=== PATIENT | female | born 1995 | race African-American/Black ===

== ENCOUNTER 2022-08-03 23:26 | Observation (INO) | payer OTHER, MEDICAID, SELFPAY ==
--- NOTE | ~2022-08-03 | US_ITS ---
EXAMINATION: US OB limited DATE: 08/04/2022 07:47 INDICATION: well-being. TECHNIQUE: Real-time ultrasound of the pelvis was performed. COMPARISON: None. FINDINGS: There is a single fetus in transverse lie. The placenta is fundal and posterior, 6.9 cm from the cer vix. The cervical length is 4.2 cm on transabdominal images, which is normal. heart rate is 165 beats per minute (bpm). The amniotic fluid volume is subjectively normal. There is a 4.2 cm cystic m ass in left ovary with peripheral low level echoes. There is vascular flow to left ovary. IMPRESSION: 1. Single living fetus in transverse lie. 2. 4.2 cm cystic mass in left ovary with peripheral low level echoes, likely a hemorrhagic cyst. Reviewed, dictated and finalized at location A.
[2022-08-04] VITALS (132 sets, daily range): BP systolic 74–134; BP diastolic 53–97; PULSE 81–124; RESP 15–16; TEMP 37.1–37.3; O2SAT 92–100; BMI 27.3
--- NOTE | 2022-08-04 00:20 | PC.NURSE ---
Patient reported cramping while doing assessment, abdomen was palpated and patient states that it was tender when palpated. Abdomen was firm. TOCO applied to monitor uterus.
[2022-08-04 00:26] LABS: Hematocrit 22.8 % (37.0-47.0); Mean Corpuscular HGB Conc 28.5 g/dl (32-36); Mean Corpuscular Volume 66.7 fl (80-100); Mean Platelet Volume 8.7 fl (7.4-10.4); Platelet Count Result 216 k/mm3 (150-375); Red Blood Count 3.42 M/mm3 (4.2-5.4); Red Cell Distribution Width 18.1 % (11.5-14.5); White Blood Count 9.1 K/mm3 (4.5-10.0)
[2022-08-04 00:35] LABS: Hemoglobin 6.5 g/dL (12.0-15.0)
[2022-08-04 00:37] LABS: Alanine Aminotransferase 15 U/L (6-35); Albumin Level 3.4 g/dL (3.5-5.1); Alkaline Phosphatase 106 U/L (38-126); Anion Gap 5 mmol/L (8-16); Aspartate Amino Transferase 30 U/L (14-36); Bilirubin,Total 1.1 mg/dL (0.2-1.3); Blood Urea Nitrogen 5 mg/dL (7-17); Carbon Dioxide 20 mmol/L (22-30); Chloride 104 mmol/L (98-107); Estimated Glomerular Filt Rate > 60; Glucose 88 mg/dL (65-110); INR 1.2; Potassium 3.4 mmol/L (3.4-5.0); Prothrombin Time 14.7 Seconds (11.1-14.7); Sodium 129 mmol/L (137-145)
[2022-08-04 00:38] LABS: Partial Thromboplastin Time 25.7 SECONDS (22.3-36.8)
--- NOTE | 2022-08-04 00:38 | PC.NURSE ---
Notified Dr. Tinsley of lab results. Also notified of maternal assessment including abdominal pain with palpation, firm fundus palpated. Patient contractions q1-1.5minutes. Patient reports vaginal bleeding x6 hours. Patient denies clots. Trickle of blood coming from vagina noted upon assessment. FHT doppled 180-[id number] Tinsley coming in to evaluate.
[2022-08-04 00:39] LABS: Fibrinogen 284 mg/dl (215-510)
--- NOTE | 2022-08-04 01:08 | PC.NURSE ---
Dr. Tinsley at bedside. Plan of care discussed with patient, questions answered. Bedside ultrasound performed. Speculum exam performed by Dr. Tinsley and culture collected. T doppled by Dr. Tinsley.
[2022-08-04] MEDS: ONDANSETRON INJ 4 MG/2 ML VIAL IV PUSH (01:15)
[2022-08-04] MEDS: SODIUM CHLORIDE 0.9% IV 250 ML 30 ML IV CONT (01:26)
--- NOTE | 2022-08-04 01:41 | PM.IMHP ---
H&P: HPI History of Present Illness Date/Time: 08/04/22 01:41 Chief Complaint: Bleeding Narrative: She is a 27 y/o at 18 5/7 by EDC 01/04/23 which was established by an ultrasound that she had at an outside hospital approximately one month ago. She has not established any care. She presented to [facility] ED after she noticed what she states was a pop in her lower abdomen, she was sitting and then started having bleeding. She denies fluid leakage. In ED there was some blood in vagina, small amount per ED provider. Also she had a hemoglobin of 6.9. MCV in the 60s. Normal WBC on CBC. She denies any hypovolemic symptoms. She was accepted as a patient here for severe anemia and threatened miscarriage. She started having cramping when she arrived on L and D. Mild nausea. She was also aron. Temp 99. Bedside ultrasound showed fundal placental, normal fluid and lower uterine segment appeared ? thin. Her history is significant for 2 prior c/s 2012 and repeat 2018. She had a gastric sleeve in 2020. Regular periods. Denies any recent strenuous activity. Denies abnormal vaginal discharge. No history of tobacco, alcohol or drug use. FHT 170 a bedside. Bedside ultrasound showed fetus breech position, normal appearing fluid, the lower uterine segment appeared ? thin, intact. Review of Systems Review of Systems: All systems reviewed & are unremarkable except as noted in HPI and below Constitutional: Constitutional: Reports no additional constitutional complaints and Denies headache(s) Eyes: Eyes: Denies spots in vision ENT: Reports system reviewed and no additional complaints, except as documented and Denies headache(s) Cardiovascular: Cardiovascular: Denies chest pain and Denies dyspnea Respiratory: Respiratory: Denies dyspnea Gastrointestinal: Gastrointestinal: Reports no additional gastrointestinal complaints Genitourinary: Genitourinary: Reports amenorrhea Musculoskeletal: Musculoskeletal: Reports no additional musculoskeletal complaints Integumentary/Breasts: Skin/Breast: Denies breast mass and Denies rash Neurologic: Denies headache(s) Psychiatric: Psychiatric: Reports no additional psychiatric complaints [facility] Female Reproductive History Menstrual Total pregnancies: 3 Meds Home Medications and Allergies Home Medications Medication Instructions Recorded Confirmed Type No Home Medications 08/04/22 08/04/22 History Vital Signs Vital Signs - 24 hr 08/04/22 00:24 08/04/22 00:26 08/04/22 00:30 Pulse Rate 94 94 Blood Pressure 123/71 127/79 Pulse Oximetry 100 Oxygen Delivery 08/04/22 00:31 08/04/22 00:36 08/04/22 00:41 Pulse Rate Blood Pressure Pulse Oximetry 100 100 100 Oxygen Delivery 08/04/22 00:46 08/04/22 00:51 08/04/22 00:56 Pulse Rate Blood Pressure Pulse Oximetry 100 100 100 Oxygen Delivery 08/04/22 01:00 08/04/22 01:01 08/04/22 01:06 Pulse Rate 99 Blood Pressure 120/91 H Pulse Oximetry 100 100 Oxygen Delivery 08/04/22 01:11 08/04/22 01:16 08/04/22 01:22 Pulse Rate Blood Pressure Pulse Oximetry 100 100 100 Oxygen Delivery 08/04/22 01:24 08/04/22 01:29 08/04/22 01:30 Pulse Rate 91 Blood Pressure 129/72 Pulse Oximetry 92 100 Oxygen Delivery 08/04/22 00:20 Pulse Rate Blood Pressure Pulse Oximetry Oxygen Delivery Room Air Exam Const: General: uncomfortable Eyes: General: appearance normal, both eyes and all related structures Resp: Effort & Inspection: normal respiratory effort Cardio: Rate: regular rate GI: Inspection: normal to inspection Other: uterus -2umb tenderness at lower uterus, suprapubic, no abdominal guarding or rebound, no CVA tenderness : External Female Exam: normal external appearance Speculum Exam - Vagina: other Speculum Exam - Cervix: normal appearance of the cervix Other: small amount of dark blood in vagina, cervix closed and thick Sk
[2022-08-04] MEDS: ceFAZolin 1 GM/NS 50 ML 1 GM/50 ML BAG IVPB (02:03)
[2022-08-04] MEDS: NIFEdipine 10 MG CAPSULE PO ×2 (02:07→08:12)
[2022-08-04 02:10] LABS: Appearance Urine Cloudy (Clear); Bacteria Urine 1+ /hpf; Bilirubin Urine Negative (Negative); Blood Urine 3+ (Negative); Color Urine Yellow (Yellow); Glucose Urine UA Negative (Negative); Ketones Urine 2+ mg/dL (Negative); Leukocyte Esterase Ur 2+ LEU/UL (Negative); Need Manual Microscopic Reviewed; Nitrate Urine Negative (Negative); Protein Urine 1+ mg/dL (Negative); RBC Urine >100 /hpf (0-2); Specific Grav Ur 1.025 (1.001-1.035); Squamous Epithelial Cell Urine None seen /hpf (Few); WBC Urine 51-100 /hpf
[2022-08-04 02:13] LABS: Add Urine Microscopic? YES
[2022-08-04 02:43] LABS: Amphetamine Screen Urine Negative (Negative); Barbiturate Screen Urine Negative (Negative); Benzodiazepines Screen Urine Negative (Negative); Cannabinoid Screen Urine Negative (Negative); Cocaine Screen Urine Negative (Negative); Methadone Screen Urine Negative (Negative); Opiate Screen Urine Negative (Negative); Phencyclidine Screen Urine Negative (Negative)
[2022-08-04] MEDS: DEXTROSE 5%/0.9% SOD CHL 1,000 ML 125 ML IV CONT (05:47)
[2022-08-04 10:13] LABS: Hematocrit 29.9 % (37.0-47.0); Hemoglobin 8.8 g/dL (12.0-15.0); Mean Corpuscular HGB Conc 29.4 g/dl (32-36); Mean Corpuscular Hemoglobin 20.4 pg (26-34); Mean Corpuscular Volume 69.4 fl (80-100); Mean Platelet Volume 8.5 fl (7.4-10.4); Platelet Count Result 233 k/mm3 (150-375); Red Blood Count 4.31 M/mm3 (4.2-5.4); Red Cell Distribution Width 20.4 % (11.5-14.5); White Blood Count 8.8 K/mm3 (4.5-10.0)
[2022-08-04 10:21] LABS: Alanine Aminotransferase 33 U/L (6-35); Albumin Level 3.7 g/dL (3.5-5.1); Alkaline Phosphatase 109 U/L (38-126); Anion Gap 11 mmol/L (8-16); Aspartate Amino Transferase 33 U/L (14-36); Bilirubin,Total 2.2 mg/dL (0.2-1.3); Calcium 8.6 mg/dL (8.4-10.2); Carbon Dioxide 18 mmol/L (22-30); Chloride 101 mmol/L (98-107); Estimated CRCL calculation 159 ml/min; Estimated Glomerular Filt Rate > 60; Glucose 104 mg/dL (65-110); Potassium 3.1 mmol/L (3.4-5.0); Sodium 130 mmol/L (137-145)
[2022-08-04 10:22] LABS: Blood Urea Nitrogen < 2 mg/dL (7-17)
[2022-08-04 10:41] LABS: INR 1.2; Partial Thromboplastin Time 25.6 SECONDS (22.3-36.8); Prothrombin Time 14.3 Seconds (11.1-14.7)
[2022-08-04 10:42] LABS: Fibrinogen 388 mg/dl (215-510)
--- NOTE | 2022-08-04 11:53 | ECG_ITS ---
Measurements Intervals [place] Rate: 97 P: 70 VT: 151 QRS: 23 QRSD: 93 T: 37 QT: 358 QTc: 456 Interpretive Statements SINUS RHYTHM INCOMPLETE RIGHT BUNDLE BRANCH BLOCK LOW QRS VOLTAGE IN PRECORDIAL LEADS [QRS DEFLECTION < 1.0 mV IN CHEST LEADS] NO PREVIOUS ECG AVAILABLE FOR COMPARISON Electronically Signed On 08-05-2022 13:49:17 CDT by Yi Dickens M.D.
--- NOTE | 2022-08-04 14:50 | PM.OBPNVD ---
OB - PN: Subj Subjective Date/time seen: 08/04/22 0820 Interval history: She states she feels better, minimal spotting and cramping. Decreased tenderness at suprapubic area. OB - PN: Obj Data Labs 08/04/22 09:55 08/04/22 09:55 Labs: Laboratory Results - last 24 hr 08/03/22 08/03/22 08/03/22 23:57 23:57 23:57 WBC 9.1 RBC 3.42 L Hgb 6.5 L* Hct 22.8 L MCV 66.7 L MCH 19.0 L MCHC 28.5 L RDW 18.1 H Plt Count 216 MPV 8.7 PT 14.7 INR 1.2 APTT 25.7 Fibrinogen 284 Sodium 129 L Potassium 3.4 Chloride 104 Carbon Dioxide 20 L Anion Gap 5 L BUN 5 L Creatinine 0.40 L Estim Creat Clear Calc Not Reportable Estimated GFR > 60 Glucose 88 Calcium 8.0 L Total Bilirubin 1.1 AST 30 ALT 15 Alkaline Phosphatase 106 Total Protein 7.0 Albumin 3.4 L Urine Color Urine Appearance Urine pH Ur Specific [place] Urine Protein Urine Glucose (UA) Urine Ketones Ur Blood (Man) Urine Nitrate Urine Bilirubin Urine Urobilinogen Add Ur Microanalysis Leukocyte Esterase Rfl Urine RBC Urine WBC Ur Squamous Epith Cells Urine Bacteria Urine Casts Urine Opiates Screen Urine Methadone Screen Ur Barbiturates Screen Ur Phencyclidine Scrn Ur Amphetamine Screen U Benzodiazepines Scrn Urine Cocaine Screen U Cannabinoids Screen Blood Type Antibody Screen Crossmatch 08/03/22 08/04/22 08/04/22 23:57 01:45 01:45 WBC RBC Hgb Hct MCV MCH MCHC RDW Plt Count MPV PT INR APTT Fibrinogen Sodium Potassium Chloride Carbon Dioxide Anion Gap BUN Creatinine Estim Creat Clear Calc Estimated GFR Glucose Calcium Total Bilirubin AST ALT Alkaline Phosphatase Total Protein Albumin Urine Color Yellow Urine Appearance Cloudy H Urine pH 6.0 Ur Specific [place] 1.025 Urine Protein 1+ H Urine Glucose (UA) Negative Urine Ketones 2+ H Ur Blood (Man) 3+ H Urine Nitrate Negative Urine Bilirubin Negative Urine Urobilinogen 1.0 Add Ur Microanalysis Reviewed Leukocyte Esterase Rfl 2+ H Urine RBC >100 H Urine WBC 51-100 H Ur Squamous Epith Cells None seen Urine Bacteria 1+ Urine Casts 3-5 Urine Opiates Screen Negative Urine Methadone Screen Negative Ur Barbiturates Screen Negative Ur Phencyclidine Scrn Negative Ur Amphetamine Screen Negative U Benzodiazepines Scrn Negative Urine Cocaine Screen Negative U Cannabinoids Screen Negative Blood Type O Positive Antibody Screen Negative Crossmatch See Detail 08/04/22 08/04/22 08/04/22 09:55 09:55 09:55 WBC 8.8 RBC 4.31 Hgb 8.8 L Hct 29.9 L MCV 69.4 L MCH 20.4 L D MCHC 29.4 L RDW 20.4 H Plt Count 233 MPV 8.5 PT 14.3 INR 1.2 APTT 25.6 Fibrinogen 388 Sodium 130 L Potassium 3.1 L Chloride 101 Carbon Dioxide 18 L Anion Gap 11 BUN < 2 L Creatinine 0.40 L Estim Creat Clear Calc 159 Estimated GFR > 60 Glucose 104 Calcium 8.6 Total Bilirubin 2.2 H AST 33 ALT 33 Alkaline Phosphatase 109 Total Protein 8.0 Albumin 3.7 Urine Color Urine Appearance Urine pH Ur Specific [place] Urine Protein Urine Glucose (UA) Urine Ketones Ur Blood (Man) Urine Nitrate Urine Bilirubin Urine Urobilinogen Add Ur Microanalysis Leukocyte Esterase Rfl Urine RBC Urine WBC Ur Squamous Epith Cells Urine Bacteria Urine Casts Urine Opiates Screen Urine Methadone Screen Ur Barbiturates Screen Ur Phencyclidine Scrn Ur Amphetamine Screen U Benzodiazepines Scrn Urine Cocaine Screen U Cannabinoids Screen Blood Type Antibody Screen Crossmatch
--- NOTE | 2022-08-20 11:07 | PM.OBTRLD ---
OB - Triage/Final Diagnosis Visit Information Comments/Additional reasons for admission: I have assessed the risk for this patient, Sylvester Pitts, and determined that she would benefit from observation care. Evaluation Laboratory results: Laboratory Tests 08/03/22 08/04/22 08/04/22 23:57 01:45 09:55 WBC 9.1 8.8 RBC 3.42 L 4.31 Hgb 6.5 L* 8.8 L Hct 22.8 L 29.9 L MCV 66.7 L 69.4 L MCH 19.0 L 20.4 L D MCHC 28.5 L 29.4 L RDW 18.1 H 20.4 H Plt Count 216 233 MPV 8.7 8.5 PT 14.7 14.3 INR 1.2 1.2 APTT 25.7 25.6 Fibrinogen 284 388 Sodium 129 L 130 L Potassium 3.4 3.1 L Chloride 104 101 Carbon Dioxide 20 L 18 L Anion Gap 5 L 11 BUN 5 L < 2 L Creatinine 0.40 L 0.40 L Estim Creat Clear Calc Not Reportable 159 Estimated GFR > 60 > 60 Glucose 88 104 Calcium 8.0 L 8.6 Total Bilirubin 1.1 2.2 H AST 30 33 ALT 15 33 Alkaline Phosphatase 106 109 Total Protein 7.0 8.0 Albumin 3.4 L 3.7 Urine Color Yellow Urine Appearance Cloudy H Urine pH 6.0 Ur Specific [place] 1.025 Urine Protein 1+ H Urine Glucose (UA) Negative Urine Ketones 2+ H Ur Blood (Man) 3+ H Urine Nitrate Negative Urine Bilirubin Negative Urine Urobilinogen 1.0 Add Ur Microanalysis Reviewed Leukocyte Esterase Rfl 2+ H Urine RBC >100 H Urine WBC 51-100 H Ur Squamous Epith Cells None seen Urine Bacteria 1+ Urine Casts 3-5 Urine Opiates Screen Negative Urine Methadone Screen Negative Ur Barbiturates Screen Negative Ur Phencyclidine Scrn Negative Ur Amphetamine Screen Negative U Benzodiazepines Scrn Negative Urine Cocaine Screen Negative U Cannabinoids Screen Negative Blood Type O Positive Antibody Screen Negative Crossmatch See Detail Final Diagnosis (1) Second trimester bleeding: Code(s): O46.92 - Antepartum hemorrhage, unspecified, second trimester Status: Acute
== END 2022-08-04 13:57 | disposition home or self-care (01) ==
PROVIDERS: Admitting Provider Obstetrics & Gynecology; Visit Provider Obstetrics & Gynecology
DX: O46.92 Antepartum hemorrhage, unspecified, second trimester (principal); O99.012 Anemia complicating pregnancy, second trimester; D50.0 Iron deficiency anemia secondary to blood loss (chronic); O23.42 Unspecified infection of urinary tract in pregnancy, second trimester; N39.0 Urinary tract infection, site not specified; O34.82 Maternal care for other abnormalities of pelvic organs, second trimester; N83.202 Unspecified ovarian cyst, left side; O99.412 Diseases of the circulatory system complicating pregnancy, second trimester; I45.10 Unspecified right bundle-branch block; Z3A.18 18 weeks gestation of pregnancy
CPT/HCPCS: 36415; 36430; 76815; 80053; 80307; 81001; 85027; 85384; 85610; 85730; 86850; 86900; 86901; 86923; 87070; 87086; 93005; 96361; 96365; 96375; A9270; G0378; G0379; J0690; J2405; J7042; J7050; P9016

== ENCOUNTER 2022-08-07 13:48 | Outpatient (CLI) | payer OTHER, MEDICAID, SELFPAY ==
[2022-08-07 14:20] LABS: Basophils Percent Auto 0.1 % (0.2-1.2); Eosinophils Absolute Auto 0.1 K/mm3 (0-0.3); Eosinophils Percent Auto 1.5 % (0-4.4); Hematocrit 29.9 % (37.0-47.0); Hemoglobin 8.5 g/dL (12.0-15.0); Immature Granulocyte Absolute 0.02 K/mm3 (0.00-0.031); Immature Granulocyte Percent A 0.3 % (0-0.5); Lymphocytes Percent Auto 13.3 % (18.3-44.2); Mean Corpuscular HGB Conc 28.4 g/dl (32-36); Mean Corpuscular Hemoglobin 20.1 pg (26-34); Mean Corpuscular Volume 70.7 fl (80-100); Mean Platelet Volume 8.6 fl (7.4-10.4); Monocytes Absolute Auto 0.5 K/mm3 (0.1-0.6); Monocytes Percent Auto 7.5 % (2.6-8.5); Neutrophils Absolute Auto 5.2 K/mm3 (1.3-6.7); Neutrophils Percent Auto 77.3 % (45.5-73.1); Platelet Count Result 244 k/mm3 (150-375); Red Blood Count 4.23 M/mm3 (4.2-5.4); Red Cell Distribution Width 21.5 % (11.5-14.5); White Blood Count 6.8 K/mm3 (4.5-10.0)
[2022-08-07 14:37] LABS: Appearance Urine Clear (Clear); Bacteria Urine None Seen /hpf; Bilirubin Urine Negative (Negative); Blood Urine 2+ (Negative); Color Urine Dark Yellow (Yellow); Glucose Urine UA Negative (Negative); Ketones Urine Trace mg/dL (Negative); Leukocyte Esterase Ur Trace LEU/UL (NEGATIVE); Nitrate Urine Negative (Negative); Protein Urine 1+ mg/dL (Negative); Specific Grav Ur 1.019 (1.001-1.035); Squamous Epithelial Cell Urine Occasional /hpf (Few); WBC Urine 0-5 /hpf (0-3)
[2022-08-07 14:41] LABS: Add Urine Microscopic? YES
[2022-08-07 14:51] LABS: Anisocytosis 1+ (NORMAL); Hypochromasia 1+ (NORMAL); Microcytosis 1+ (NORMAL); Ovalocytes 1+ (NORMAL); Platelet Estimate Adequate (Adequate)
[2022-08-07 14:52] LABS: Schistocytes None Seen (NORMAL)
[2022-08-07 14:59] LABS: Thyroid Stimulating Hormone 0.558 uIU/mL (0.465-4.680)
[2022-08-07 15:08] LABS: HIV 1/2 Ab P24 Ag Result Negative (Negative)
[2022-08-07 15:41] LABS: Hepatitis B Surface Antigen Negative (Negative); Rubella IgG Antibody 16.3 IU/ML
[2022-08-07 15:48] LABS: Hepatitis C Virus Antibody Negative (Negative)
[2022-08-08 11:26] LABS: Rapid Plasma Reagin Non-Reactive (NonReactive)
[2022-08-13 11:49] LABS: Hematocrit 28.9 % (35.0-45.0); Hemoglobin 8.6 g/dL (11.7-15.5); MCH 20.6 pg (27.0-33.0); MCV 69.3 fL (80.0-100.0); RDW 21.1 % (11.0-15.0); Red Blood Cell Count 4.17 Mill/uL (3.80-5.10)
[2022-08-18 11:22] LABS: CF Result NEGATIVE (NEGATIVE); Ethnicity AA
== END 2022-08-07 13:49 | disposition home or self-care (01) ==
LOC: ANHLAB 13:51
PROVIDERS: Visit Provider Obstetrics & Gynecology
DX: Z34.90 Encounter for supervision of normal pregnancy, unspecified, unspecified trimester (principal)
CPT/HCPCS: 36415; 81001; 81220; 82306; 83021; 84443; 85025; 86592; 86703; 86762; 86787; 86803; 86850; 86900; 86901; 87086; 87340; G0432

== ENCOUNTER 2022-10-16 13:13 | Outpatient (CLI) | payer OTHER, MEDICAID, SELFPAY ==
[2022-10-16 15:09] LABS: Hematocrit 25.3 % (37.0-47.0); Mean Corpuscular HGB Conc 26.5 g/dl (32-36); Mean Corpuscular Hemoglobin 17.7 pg (26-34); Mean Corpuscular Volume 66.9 fl (80-100); Platelet Count Result 357 k/mm3 (150-375); Red Blood Count 3.78 M/mm3 (4.2-5.4); White Blood Count 6.9 K/mm3 (4.5-10.0)
[2022-10-16 15:17] LABS: Hemoglobin 6.7 g/dL (12.0-15.0)
== END 2022-10-16 13:14 | disposition home or self-care (01) ==
LOC: ANHLAB 13:16
PROVIDERS: Visit Provider Obstetrics & Gynecology
DX: Z34.90 Encounter for supervision of normal pregnancy, unspecified, unspecified trimester (principal); D64.9 Anemia, unspecified; Z3A.00 Weeks of gestation of pregnancy not specified
CPT/HCPCS: 36415; 85027

== ENCOUNTER 2022-10-27 08:56 | Inpatient (IN) | payer OTHER, MEDICAID, SELFPAY ==
[2022-10-27] VITALS (24 sets, daily range): BP systolic 94–127; BP diastolic 49–69; PULSE 89–118; RESP 14–18; TEMP 36.4–36.8; O2SAT 100; BMI 25.9
[2022-10-27] MEDS: LACTATED RINGERS 1,000 ML 125 ML IV CONT ×2 (09:32→10:07)
--- NOTE | 2022-10-27 09:33 | PM.IMHP ---
H&P: HPI History of Present Illness Date/Time: 10/27/22 09:33 Chief Complaint: Bleeding and LOF Narrative: She is at 30 weeks with EDC 01/05/23 by 18 week u/s, presented to L and D after feeling leaking this morning at 0800 and then had vaginal bleeding and then started aron. On arrival to L and D she had gross rupture of membranes of bloody fluid. When she was initially put on external monitor there was a deceleraytion and tachysystole. Initial tachycardia in 170s, resolved with IV hydration and IV Magnesium and baseline FHT 155. On initially seeing her the brief bedside ultrasound was limited due to difficulty with her moving with trying to get IV. position was confirmed cephalic and adequate fluid visualized. Unable to assess placenta adeqately. PNC significant for second trimester bleeding at 18 weeks. She did not have established care prior to that. She received a blood transfusion then. She continued her care with me after the 18 week admission. She has been prescribed iron and states she is compliant. She has had a consult with [facility]. She has a history of noncompliance with getting her labs. She has had a blood transfusion ordered for over two weeks and would not come in for it and would not return multiple office calls. Did not keep last scheduled MFM appointment. She states she has transportation via her mother. PNC also significant for 2 prior sections (term x 2). She has had prior bariatric surgery which may be a contributing factor with anemia. She denied fever chills. Bedside brief ultrsound confirmed cephalic presentation. Review of Systems Review of Systems: All systems reviewed & are unremarkable except as noted in HPI and below Constitutional: Constitutional: Reports no additional constitutional complaints and Denies headache(s) Eyes: Eyes: Denies spots in vision ENT: Reports system reviewed and no additional complaints, except as documented and Denies headache(s) Cardiovascular: Cardiovascular: Denies chest pain and Denies dyspnea Respiratory: Respiratory: Denies dyspnea Gastrointestinal: Gastrointestinal: Reports no additional gastrointestinal complaints Genitourinary: Genitourinary: Reports amenorrhea Musculoskeletal: Musculoskeletal: Reports no additional musculoskeletal complaints Integumentary/Breasts: Skin/Breast: Denies breast mass and Denies rash Neurologic: Denies headache(s) Psychiatric: Psychiatric: Reports no additional psychiatric complaints [facility] Past Medical History Medical History (Updated 10/27/22 @ 10:34 by Andrew Tinsley MD) Bariatric surgery status complicating , third trimester Severe anemia Surgical History Surgical History History of 2 sections Social History Social History Smoking status: Never smoker Alcohol intake: unknown Substance use: unknown Lack of Transportation: No Lack of Food: Never True Current Housing: I Have Housing Concerned About Future Housing: No Difficulty Paying Gas/Electric Bills: No Difficulty Paying for Meds: No Currently Unemployed: No Education: High School Diploma/GED Difficulty w/ Childcare or Family Care: No Meds Home Medications and Allergies Home Medications Medication Instructions Recorded Confirmed Type ferrous sulfate 325 mg (65 mg 325 mg PO TID #90 tabs 08/04/22 09/05/22 Rx iron) tablet (Iron (ferrous sulfate)) multivitamin no.47-iron fum 27 1 cap PO DAILY #30 caps 08/04/22 09/05/22 Rx mg-folate no.1 1 mg-dha 300 mg capsule (PNV-DHA) blood sugar diagnostic (OneTouch #100 ea 10/20/22 Rx Verio test strips) blood-glucose meter (OneTouch #1 ea 10/20/22 Rx Verio Flex Meter) lancets 33 gauge (Lite Touch #100 ea 10/20/22 Rx Lancets) metronidazole 500 mg tablet 2,000 mg PO Q12H #4 tabs 10/20/22 Rx Aller
[2022-10-27 09:35] LABS: Basophils Percent Auto 0.3 % (0.2-1.2); Eosinophils Absolute Auto 0.1 K/mm3 (0-0.3); Eosinophils Percent Auto 1.2 % (0-4.4); Hematocrit 27.2 % (37.0-47.0); Hemoglobin 7.3 g/dL (12.0-15.0); Immature Granulocyte Absolute 0.02 K/mm3 (0.00-0.031); Immature Granulocyte Percent A 0.2 % (0-0.5); Lymphocytes Absolute Auto 1.75 K/mm3 (0.9-3.2); Lymphocytes Percent Auto 18.1 % (18.3-44.2); Mean Corpuscular HGB Conc 26.8 g/dl (32-36); Mean Corpuscular Hemoglobin 18.2 pg (26-34); Mean Corpuscular Volume 67.8 fl (80-100); Mean Platelet Volume 8.7 fl (7.4-10.4); Monocytes Absolute Auto 0.7 K/mm3 (0.1-0.6); Neutrophils Absolute Auto 7.1 K/mm3 (1.3-6.7); Neutrophils Percent Auto 73.2 % (45.5-73.1); Platelet Count Result 299 k/mm3 (150-375); Red Blood Count 4.01 M/mm3 (4.2-5.4); Red Cell Distribution Width 19.2 % (11.5-14.5); White Blood Count 9.7 K/mm3 (4.5-10.0)
[2022-10-27] MEDS: MAGNESIUM SULF 6 GM/WATER150ML 6 GM/150 ML BAG IVPB (09:35)
[2022-10-27] MEDS: BETAMETHASONE SOD PHOS/ACETATE 30 MG/5 ML VIAL 12 MG IM (09:58)
[2022-10-27] MEDS: AMPICILLIN 2 GM/NS 100 ML 2 GM/100 ML BAG IVPB (10:03)
[2022-10-27 10:07] LABS: Prothrombin Time 13.6 Seconds (11.1-14.7)
[2022-10-27 10:08] LABS: Fibrinogen 410 mg/dl (215-510); Partial Thromboplastin Time 23.8 SECONDS (22.3-36.8)
[2022-10-27 10:55] LABS: Platelet Estimate Adequate (Adequate)
[2022-10-27 10:56] LABS: Anisocytosis 1+ (NORMAL); Hypochromasia 1+ (NORMAL); Large Platelets Present; Microcytosis 1+ (NORMAL); Schistocytes None Seen (NORMAL)
[2022-10-27] MEDS: SODIUM CHLORIDE 0.9% IV 250 ML 30 ML IV CONT (11:00)
--- NOTE | 2022-10-27 13:38 | PC.NURSE ---
1018--Report given to Nurse at [facility].
--- NOTE | 2022-10-27 13:47 | PC.NURSE ---
1200---[facility] chart[facility] under Vonda Foster RN done by Doretha Mueller RN.
[2022-10-28 11:22] LABS: Rapid Plasma Reagin Non-Reactive (NonReactive)
--- NOTE | 2022-11-17 17:38 | P.TS_ITS ---
Transfer Discharge Sum: Prov Provider Date of admission: 10/27/22 08:56 Primary care physician: [employer] Admitting clinician: Andrew Tinsley MD Attending physician on admission: Andrew Tinsley Anticipated date of transfer: 10/27/22 Receiving physician/facility: [facility]. DS: Admitting Diagnosis Discharge Date 10/27/22 Admitting Diagnosis Bleeding in third trimester. PPROM. DS: Discharge Diagnosis Discharge Diagnosis Plan Abruption Transfer Discharge Sum: Med Medications Active and Home Medications: Home Medications ferrous sulfate 325 mg (65 mg iron) tablet (Iron (ferrous sulfate)) 325 mg PO TID #90 tabs 08/04/22 [Rx Confirmed 09/05/22] multivitamin no.47-iron fum 27 mg-folate no.1 1 mg-dha 300 mg capsule (PNV-DHA) 1 cap PO DAILY #30 caps 08/04/22 [Rx Confirmed 09/05/22] blood sugar diagnostic (OneTouch Verio test strips) #100 ea 10/20/22 [Rx] blood-glucose meter (OneTouch Verio Flex Meter) #1 ea 10/20/22 [Rx] lancets 33 gauge (Lite Touch Lancets) #100 ea 10/20/22 [Rx] Transfer Discharge Sum: Hosp Hospital Course Hospital course: Sylvester Pitts is a 27 year old female admitted for bleeding. She was having frequent contractions she had had concern for PPROM. there appeared to be gross watery bloody discharge. She was assumed rupture of membranes. Bleeding had decreased when she arrived. A long history of chronic anemia. She was admitted started on magnesium since she was aron a lot. The bleeding did decrease. Get a blood transfusion started. She was transferred to [facility] after discussing with her MFM service. tracing was reassuring prior to discharge. Irregular contractions prior to discharge. She was transferred via helicopter. Time Spent with Patient Time attestation: Total time spent providing and/or coordinating transfer services: Exam Const: General: no acute distress Resp: Effort & Inspection: normal respiratory effort Cardio: Rhythm: regular rhythm GI: Other: Gravid no fundal tenderness : Other: Cervix Closed and thick Neuro: General: oriented to person, oriented to place and oriented to time DS: Data Procedures/Treatments: External monitoring, bedside brief OB ultrasound.
== END 2022-10-27 12:03 | disposition short-term general hospital (02) | DRG 833 ==
PROVIDERS: Admitting Provider Obstetrics & Gynecology; Visit Provider Obstetrics & Gynecology
DX: O42.913 Preterm premature rupture of membranes, unspecified as to length of time between rupture and onset of labor, third trimester (principal); O99.843 Bariatric surgery status complicating pregnancy, third trimester; Z3A.49 Greater than 42 weeks gestation of pregnancy; O99.013 Anemia complicating pregnancy, third trimester; Z3A.30 30 weeks gestation of pregnancy
CPT/HCPCS: 36415; 36430; 85025; 85384; 85610; 85730; 86592; 86850; 86900; 86901; 86923; J0290; J0456; J0702; J3475; J7050; J7060; J7120; P9016

== ENCOUNTER 2022-11-05 11:18 | Outpatient (RCR) | payer OTHER, MEDICAID, SELFPAY ==
[2022-11-05] VITALS (8 sets, daily range): BP systolic 114–119; BP diastolic 60–74; PULSE 75–90
--- NOTE | ~2022-11-05 | US_ITS ---
US OB limited 11/05/2022 14:01 Indication: History of placental abruption. Procedure: High-resolution Limited obstetrical ultrasound Comparison: Ultrasound dated 08/04/2022 Findings: There is a single living intrauterine in vertex presentation. Placenta is posteri or/fundal. heart rate 141 BPM. Amniotic fluid index is normal measuring 10.9 cm. There is a cre scentic hypoechoic mass along the surface of the placenta, consistent with preplacental abrupti on measuring 7.1 x 5.6 x 2.2 cm. Impression: 1: Single living intrauterine in vertex presentation. 2: Preplacental abruption measuring 7.1 x 5.6 x 2.2 cm.] 3: Normal LUC measures 10.9 cm. Reviewed, dictated and finalized at location A. Impression: 1: Single living intrauterine in vertex presentation. 2: Preplacental abruption measuring 7.1 x 5.6 x 2.2 cm.] 3: Normal LUC measures 10.9 cm.
[2022-11-05 12:40] LABS: Basophils Percent Auto 0.3 % (0.2-1.2); Eosinophils Absolute Auto 0.1 K/mm3 (0-0.3); Hematocrit 32.4 % (37.0-47.0); Hemoglobin 9.5 g/dL (12.0-15.0); Immature Granulocyte Absolute 0.03 K/mm3 (0.00-0.031); Immature Granulocyte Percent A 0.3 % (0-0.5); Lymphocytes Absolute Auto 1.61 K/mm3 (0.9-3.2); Lymphocytes Percent Auto 16.7 % (18.3-44.2); Mean Corpuscular HGB Conc 29.3 g/dl (32-36); Mean Corpuscular Hemoglobin 21.4 pg (26-34); Mean Platelet Volume 9.1 fl (7.4-10.4); Monocytes Absolute Auto 0.7 K/mm3 (0.1-0.6); Monocytes Percent Auto 6.9 % (2.6-8.5); Neutrophils Absolute Auto 7.2 K/mm3 (1.3-6.7); Neutrophils Percent Auto 74.8 % (45.5-73.1); Platelet Count Result 309 k/mm3 (150-375); Red Blood Count 4.44 M/mm3 (4.2-5.4); Red Cell Distribution Width 24.1 % (11.5-14.5); White Blood Count 9.7 K/mm3 (4.5-10.0)
[2022-11-05 12:50] LABS: Hypochromasia 1+ (NORMAL); Platelet Estimate Adequate (Adequate)
[2022-11-05 12:51] LABS: Anisocytosis 2+ (NORMAL); Microcytosis 1+ (NORMAL); Tear Drop Cells 1+ (NORMAL)
[2022-11-05 12:52] LABS: Schistocytes None Seen (NORMAL)
--- NOTE | 2022-11-05 16:36 | PC.NURSE ---
1415--Reported US results to Dr Tinsley. DC orders given.
== END 2023-02-03 23:59 | disposition home or self-care (01) ==
LOC: ANHOBOP 11:18
PROVIDERS: Visit Provider Obstetrics & Gynecology
DX: D50.0 Iron deficiency anemia secondary to blood loss (chronic) (principal); O45.93 Premature separation of placenta, unspecified, third trimester; Z3A.32 32 weeks gestation of pregnancy
CPT/HCPCS: 36415; 59025; 76815; 83036; 85025